=== PATIENT | female | born 1990 | race Caucasian/White ===

== ENCOUNTER 2017-06-02 | Emergency (ER) | payer OTHER, SELFPAY ==
--- NOTE | 2017-06-02 01:49 | EDPHYS ---
Physician Documentation [facility] Name: Amber Cazares Age: 26 yrs Sex: Female : 1990 Arrival Date: 06/02/2017 Time: 00:48 Bed 16 Private MD: ED Physician Arnie Martínez HPI: 06/02 01:43 This 26 yrs old Female presents to ER via Ambulatory with complaints of Arm gs Injury. 01:43 The patient or guardian complains of pain, that is chronic. The complaints affect the gs anterior aspect of left shoulder. Onset: The symptoms/episode began/occurred 2 month(s) ago. Modifying factors: the symptoms are aggravated by movement. Associated signs and symptoms: Pertinent negatives: numbness. Severity of symptoms: At their worst the symptoms were moderate, in the emergency department the symptoms are unchanged. The patient has experienced similar episodes in the past, multiple times. 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 - Social history:: Patient uses alcohol, patient/guardian reports recent binge of alcohol consumption. tonite. Smoking status: Patient/guardian denies using tobacco, never smoked. ROS: 01:43 All other systems are negative. gs Exam: 01:43 Head/Face: Normocephalic, atraumatic. Eyes: Pupils equal round and reactive to light, gs extra-ocular motions intact. Lids and lashes normal. Conjunctiva and sclera are non-icteric and not injected. Cornea within normal limits. Periorbital areas with no swelling, redness, or edema. ENT: Nares patent. No nasal discharge, no septal abnormalities noted. Tympanic membranes are normal and external auditory canals are clear. Oropharynx with no redness, swelling, or masses, exudates, or evidence of obstruction, uvula midline. Mucous membranes moist. Neck: Trachea midline, no thyromegaly or masses palpated, and no cervical lymphadenopathy. Supple, full range of motion without nuchal rigidity, or vertebral point tenderness. No Meningismus. Chest/axilla: Normal chest wall appearance and motion. Nontender with no deformity. No lesions are appreciated. Cardiovascular: Regular rate and rhythm with a normal S1 and S2. No gallops, murmurs, or rubs. Normal PMI, no JVD. No pulse deficits. Respiratory: Lungs have equal breath sounds bilaterally, clear to auscultation and percussion. No rales, rhonchi or wheezes noted. No increased work of breathing, no retractions or nasal flaring. Abdomen/GI: Soft, non-tender, with normal bowel sounds. No distension or tympany. No guarding or rebound. No evidence of tenderness throughout. Back: No spinal tenderness. No costovertebral tenderness. Full range of motion. Skin: Warm, dry with normal turgor. Normal color with no rashes, no lesions, and no evidence of cellulitis. Neuro: Awake and alert, GCS 15, oriented to person, place, time, and situation. Cranial nerves II-XII grossly intact. Motor strength 5/5 in all extremities. Sensory grossly intact. Cerebellar exam normal. Normal gait. 01:43 Constitutional: The patient appears alert, awake. 01:43 Musculoskeletal/extremity: Joints: the left shoulder displays rom normal, no deformity no step off no dislocation. Vital Signs: 01:00 BP 131 / 101; Pulse 107; Resp 20 S; Temp 98.4(TE); Pulse Ox 98% on R/A; Weight 47.63 kg bb (R); Height 5 ft. 2 in. (157.48 cm) (R); Pain 10/10; 02:11 BP 116 / 76; Pulse 90; Resp 16; Temp 98.4; Pulse Ox 97% ; Pain 4/10; ag2 01:00 Body Mass Index 19.20 (47.63 kg, 157.48 cm) bb MDM: 01:39 Patient medically screened. gs 01:43 Differential diagnosis: contusion, abrasion, tendonitis, chronic pain, etoh gs intoxication. Data reviewed: vital signs, nurses notes. Counseling: I had a detailed discussion with the patient and/or guardian regarding: the historical points, exam findings, and any diagnostic results supporting the discharge/admit diagnosis, family pt good with plan. Response to treatment: the patient's symptoms have markedly improved after treatment. 06/02 01:57 Order name: Barbara; Complete Time: :57 ag2 Administered Medications: No medications were administered Disposition: 06/02/17 01:48 Discharged to Home. Impression: Pain in left shoulder, Alcohol abuse, Major depressive disorder, recurrent, unspecified. - Condition is Stable. - Discharge Instructions: Arthralgia, Alcohol Abuse and Nutrition, Depression, Adult, [id number]. - Medication Reconciliation Form, Thank You Letter, Antibiotic Education, Prescription Opioid Use form. - Follow up: Private Physician; When: 2 - 3 days; Reason: Re-evaluation by your physician. Follow up: Jose G Brooks MD; When: 2 - 3 days; Reason: Re-evaluation by your physician. Signatures: Amalia Awad RN RN bb Arnie Martínez MD MD gs Garcia, Athena ag2 Corrections: (The following items were deleted from the chart) 01:44 01:00 Social history: Smoking status: Patient/guardian denies using tobacco, gs Patient/guardian denies using alcohol, street drugs, bb
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
== END 2017-06-02 02:15 | disposition home or self-care (01) ==
CPT/HCPCS: 99283

== ENCOUNTER 2021-09-04 20:49 | Emergency (ER) | payer OTHER, SELFPAY ==
--- NOTE | 2021-09-04 22:05 | RAD REPORT ---
EXAM DESCRIPTION: RAD - Shoulder Left 2 View - 09/04/2021 9:55 pm CLINICAL HISTORY: Left shoulder pain FINDINGS: No fracture or dislocation is seen.
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
[2021-09-04 22:54] VITALS: BP 123/46; TEMP 99.1; O2SAT 100
== END 2021-09-04 22:26 | disposition home or self-care (01) ==
LOC: ER 20:49
DX: M25.512 Pain in left shoulder (principal); V49.50XA Passenger injured in collision with unspecified motor vehicles in traffic accident, initial encounter
CPT/HCPCS: 99283